=== PATIENT | male | born 1990 | race Caucasian/White ===

== ENCOUNTER → 2022-02-08 | Outpatient (CLI) | payer OTHER ==
[2022-02-08 09:11] LABS: FREE T4 (FREE THYROXINE) 1.05 ng/dL (0.76-1.46); THYROID STIMULATING HORMONE 4.23 uIU/mL (0.36-3.74)
== END | disposition home or self-care (01) ==
LOC: LABMN 08:06
PROVIDERS: ATTEND Chiropractor
DX: N18.9 Chronic kidney disease, unspecified (principal); M19.90 Unspecified osteoarthritis, unspecified site
CPT/HCPCS: 84439; 84443; 84481